=== PATIENT | female | born 1965 | race Caucasian/White ===

== ENCOUNTER 2018-02-09 08:00 | Outpatient (CLI) | payer OTHER ==
[2013-04-11 14:23] VITALS: BMI 31.1
[~2018-02-09 08:00] MED LIST: ACIPHEX20 MG; AMBIEN10 MG; ARMOUR THYROID30 MG PO; PROMETRIUM100 MG PO
== END 2018-02-09 09:00 | disposition home or self-care (01) ==
LOC: D.MAMMO 08:00
DX: Z12.31 Encounter for screening mammogram for malignant neoplasm of breast (principal)